=== PATIENT | male | born 1960 | race Two or more races ===

== ENCOUNTER 2024-10-02 23:43 | Emergency (ER) | payer MEDICARE, MEDICAID, SELFPAY ==
[2024-10-02 23:43] VITALS: BMI 28.1
[2024-10-03 00:05] VITALS: BP 156/84; PULSE 90; RESP 18; TEMP 37.1; O2SAT 97
--- NOTE | 2024-10-03 00:20 | PD.EDRME ---
Rapid Medical Screening Exam [facility] Arrival date/time: 10/02/24 23:43 Chief Complaint: Headache Time Seen by Provider: 10/02/24 23:50 Vital signs: Vital Signs Temperature 98.8 F 10/03/24 00:05 Pulse Rate 90 10/03/24 00:05 Respiratory Rate 18 10/03/24 00:05 Blood Pressure 156/84 H 10/03/24 00:05 Pulse Oximetry (%) 97 10/03/24 00:05 Oxygen Delivery Method Room Air 10/03/24 00:05 [facility] Narrative: Headache, dizziness x3 days. Current pain 03/31.
--- NOTE | 2024-10-03 00:22 | EKG_ITS ---
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
--- NOTE | 2024-10-03 00:46 | PD.EDADULT ---
ED General RME/HPI General Chief complaint: Headache Stated complaint: HEADACHE/ DIZZINESS X 3HOURS Time Seen by Provider: 10/02/24 23:50 Source: patient Arrival date/time: 10/02/24 23:43 Mode of arrival: ambulatory Limitations: no limitations RME / HPI RME / HPI narrative: RME: Headache, dizziness x3 days. Current pain 03/31. Dr. Matute?s Main ED Evaluation: 64-year-old male with a history of chronic recurrent headaches who presents to the emergency department with his typical headaches. He has not taken any hbmd-ows-[id number] medicine such as Tylenol or ibuprofen for the pain. He states he feels these headaches are triggered every time he is under a power lines or cellular lines. He has since moved into department complex across the street from a prior plan is had daily headaches. There is associated photophobia, nausea, and phonophobia. He denies fevers or vomiting. He denies neck stiffness. He states the last time he had this was when he was living in an apartment in [place] across from a cellular tower where he would get these recurrent headaches as well. He denies focal weakness or deficits. Related Data Previous Rx's ?Medication ?Instructions ?Recorded Brompheniramine/Phenylephrine/DM 1 tsp PO [id number] PRN COUGH OR 09/06/17 SYRUP * (DIMETAPP COLD AND COUGH *) CONGESTION #118 mL acetaminophen 500 mg tablet 500 mg PO Q6HR PRN PAIN #30 tabs 09/06/17 (Tylenol Extra Strength) loratadine 10 mg tablet (Claritin) 10 mg PO QDAY #40 tabs 09/06/17 Allergies Allergy/AdvReac Type Severity Reaction Status Date / Time NKA* Allergy Uncoded 09/06/17 13:11 Review of Systems Review of Systems Systems Reviewed: All systems reviewed, normal except as documented Past Medical History Social History SMOKING STATUS: Current some day smoker ED Exam Narrative Physical exam: GENERAL APPEARANCE: AxOx4, generally well-appearing, no acute distress. HEENT: NC, AT. MMM. EOMI, clear conjunctiva, oropharynx clear. NECK: Supple without lymphadenopathy. No stiffness or restricted ROM. HEART: Normal rate and regular rhythm, normal S1/S1, no m/r/g LUNGS: CTAB, moving air well. No crackles or wheezes are heard. ABDOMEN: Soft, nontender, nondistended with good bowel sounds heard. BACK: No midline C/T/L spine pain or deformity, No CVAT, no obvious deformity. EXTREMITIES: Without cyanosis, clubbing or edema. MUSCULOSKELETAL: FROM of all major joints, no chest tenderness NEUROLOGICAL: Grossly nonfocal. Alert and oriented, moving all 4 extremities. CN not formally tested but appear grossly intact. Observed to ambulate with normal gait. Skin: Warm and dry without any rash. General Limitations: Present no limitations Course Quality Measures none Orders Category Date Time Status EKG (ED ONLY) *Do not use* NOW Care 10/03/24 00:22 Completed EKG (ED Only) Stat Exams 10/03/24 00:22 Draft Ketorolac Inj [Toradol Inj] Med 10/03/24 00:41 Discontinued 30 mg IM X1 ONE Metoclopramide Inj [Reglan Inj] Med 10/03/24 00:41 Discontinued 10 mg IM X1 ONE Vital Signs Vital signs: Vital Signs Temperature 98.8 F 10/03/24 00:05 Pulse Rate 90 10/03/24 00:05 Respiratory Rate 18 10/03/24 00:05 Blood Pressure 156/84 H 10/03/24 00:05 Pulse Oximetry (%) 97 10/03/24 00:05 Oxygen Delivery Method Room Air 10/03/24 00:05 SpO2 97% on room air, patient is not hypoxic MDM Patient data External records reviewed:: [facility] previous records Clinical information provided by:: patient Social determinants that could affect healthcare access:: none Patient has the following chronic illnesses:: chronic recurrent headaches How is presenting disease/condition affected by chronic disease/condition?: uneffected by Evaluation data The following diagnostics were reviewed and interpreted by me:: lab results, radiology exam(s) and EKG tracing(s) Lab and/or radiology exams considered but not ordered:: None Interpretation Summary: See narrative Medications Medications considered but not ordered:: None Medication administrations:: Medication Administration History Discontinued Medications Ketorolac Tromethamine (Ketorolac Inj 60 Mg/2 Ml Vial) 30 mg IM X1 ONE Stop: 10/03/24 00:42 Last Admin: 10/03/24 00:51 Dose: 30 mg Documented By: CVL Metoclopramide HCl (Metoclopramide Inj 5 Mg/Ml Vial 2 Ml) 10 mg IM X1 ONE; Protocol Stop: 10/03/24 00:42 Last Admin: 10/03/24 00:55 Dose: 10 mg Documented By: CVL As above Consultations Consultation(s) initiated? (list below): No Diagnosis Differential Diagnosis ED Complaint MDM: Migraine, tension headache, atypical migraine Most likely diagnosis given after review of the tests above:: See below Admission Indicated Admission indicated?: not indicated Explain why admission is indicated or not indicated:: Patient has no emergent abnormalities in their studies and can be managed on an outpatient basis. Admission Request Was there a request for admission?: No Disposition Plan Disposition Plan: Discharge Discharge Attestation Discharge Attestation: The patient and all family members were given an opportunity to ask questions and understood the discharge instructions. Discharge instructions specifically effects, indications for sooner follow up or return to the emergency department, and the expected course of current diagnosis. Patient condition: Stable Medical Decision Making MDM Narrative MDM Narrative: Mr. Salas is otherwise well-appearing, with a normal neurologic exam, he presents with chronic current headaches. Further workup in the emergency department is not indicated. He was given symptomatic treatment with IM Reglan and Toradol with improvement. His remained neurologically intact with stable vital signs, he is appropriate for outpatient follow-up. We did discuss options to avoid triggers with their his headaches however could be complicated considering this is around [place] Differential Diagnosis Differential Diagnosis: Migraine, tension headache, atypical migraine Discharge Plan Plan Patient Disposition: HOME (Self Care) Prescriptions/Referrals Prescriptions/Med Rec: No Action acetaminophen [Tylenol Extra Strength] 500 MG tablet 500 mg PO Q6HR PRN (Reason: PAIN) Qty: 30 0RF loratadine [Claritin] 10 MG tablet 10 mg PO QDAY Qty: 40 0RF Brompheniramine/Phenylephrine/DM SYRUP * (DIMETAPP COLD AND COUGH *) 118 ML solution 1 tsp PO [id number] PRN (Reason: COUGH OR CONGESTION) Qty: 118 0RF Referrals: Temporary Provider,ED [Physician] - In 1 week Problem List Clinical Impression: Headache Patient/Caregiver Discharge Instructions Education Materials: Self-Care for Headaches Additional Instructions: With your primary care doctor in 2 to 3 days if symptoms are not improving. You can return to the emergency department sooner if symptoms worsen or if he notes any new, concerning issues Print Language: Monegasque Stand Alone Forms: Susannah Award Info., Patient Portal Info Letter
[2024-10-03] MEDS: KETOROLAC INJ 60 MG/2 ML VIAL 30 MG IM (00:51)
[2024-10-03] MEDS: METOCLOPRAMIDE INJ 5 MG/ML VIAL 2 ML 10 MG IM (00:55)
[2024-10-03 01:01] VITALS: RESP 18
== END 2024-10-03 01:01 | disposition home or self-care (01) ==
LOC: SERX 10-03 01:07
PROVIDERS: Emergency Provider Emergency Medicine; PCP Nurse Practitioner Family; Referring Provider Emergency Medicine
DX: R51.9 Headache, unspecified (principal)
CPT/HCPCS: 80053; 81001; 84484; 85025; 93005; 96372; 99284; J1885; J2765

== ENCOUNTER 2025-03-31 11:06 | Emergency (ER) | payer MEDICARE, MEDICAID, SELFPAY ==
--- NOTE | 2025-03-31 12:07 | EDNOTE_ITS ---
ED Male Genitalurinary RME/HPI General Chief complaint: Urogenital-Male Stated complaint: Cassidy catheter came out Time Seen by Provider: 03/31/25 11:24 Arrival date/time: 03/31/25 11:06 64-year-old male presents to the emergency department today patient has history of urinary retention patient has a Cassidy catheter in place patient reports the catheter fell out today patient is requesting replacement of the Cassidy catheter. Patient ports no fever nausea vomiting no dysuria polyuria patient reports no chest pain shortness of breath or abdominal pain Limitations: no limitations Related Data Previous Rx's ?Medication ?Instructions ?Recorded Brompheniramine/Phenylephrine/DM 1 tsp PO [id number] PRN COUGH OR 09/06/17 SYRUP * (DIMETAPP COLD AND COUGH *) CONGESTION #118 mL acetaminophen 500 mg tablet 500 mg PO Q6HR PRN PAIN #3 0 tabs 09/06/17 (Tylenol Extra Strength) loratadine 10 mg tablet (Claritin) 10 mg PO QDAY #40 t abs 09/06/17 Allergies Allergy/AdvReac Type Severity Reaction Status Date / Time NKA* Allergy Uncoded 03/31/25 11:09 Review of Systems Review of Systems Systems Reviewed: All systems reviewed, normal except as documented Constitutional Constitutional: Reports system reviewed and no additional complaints, except as documented, Denies fever(s) and Denies headache(s) Eyes Eyes: Reports system reviewed and no additional complaints, except as documented and Denies blurry vision ENT Ears, Nose, Mouth, and Throat: Reports system reviewed and no additional complaints, except as documented, Denies headache(s), Denies nasal congestion and Denies nasal discharge Cardiovascular Cardiovascular: Reports system reviewed and no additional complaints, except as documented, Denies chest pain and Denies dyspnea Respiratory Respiratory: Reports system reviewed and no additional complaints, except as documented, Denies chest congestion, Denies cough and Denies dyspnea Gastrointestinal Gastrointestinal: Reports system reviewed and no additional complaints, except as documented and Denies abdominal pain Genitourinary Genitourinary: Reports system reviewed and no additional complaints, except as documented, Denies dysuria, Denies flank pain and Reports other (Urinary retention) Integumentary/Breasts Skin/Breast: Reports system reviewed and no additional complaints, except as do cumented and Denies rash Neurologic Neurologic: Reports system reviewed and no additional complaints, except as documented, Reports as per HPI and Denies headache(s) Past Medical History Social History SMOKING STATUS: Current every day smoker ED Exam General Limitations: Present no limitations General appearance: Present alert and in no apparent distress Head Head exam: Present atraumatic Eye Eye exam: Present normal appearance, PERRL and EOMI ENT ENT exam: Present normal exam, normal oropharynx and mucous membranes moist Neck Neck exam: Present normal inspection, full ROM and trachea midline Chest Chest inspection: Present normal inspection and symmetric chest wall rise Respiratory Respiratory exam: Present normal lung sounds bilaterally Cardiovascular Cardiovascular exam: Present regular rate, normal rhythm and normal heart sounds Abdominal Exam Abdominal exam: Present soft and normal bowel sounds; Absent distention, tenderness, guarding, rebound or rigidity Extremities Exam Extremities exam: Present normal inspection and full ROM Back Exam Back exam: Present normal inspection and full ROM Neurological Exam Neurological exam: Present alert, oriented X3 and CN II-XII intact Psychiatric Psychiatric exam: Present normal affect and normal mood Skin Skin exam: Present warm, dry, intact and normal color Course Quality Measures none Orders Category Date Time Status Cassidy [Urinary Catheter] NOW Care 03/31/25 11:31 Completed Cassidy to Leg Bag NOW Care 03/31/25 11:31 Ordered Vital Signs Vital signs: O2 saturation 98% on room air within normal limits Urogenital - Male MDM Narrative MDM Narrative:: 64-year-old male presents to the emergency department today patient has history of urinary retention patient has a Cassidy catheter in place patient reports the catheter fell out today patient is requesting replacement of the Cassidy catheter. Patient ports no fever nausea vomiting no dysuria polyuria patient reports no chest pain shortness of breath or abdominal pain On exam patient well-appearing patient does not appear ill or toxic in no acute distress Cassidy catheter was replaced patient tolerated procedure well patient had approximately 2 L out patient reports complete relief Patient discharged home in no distress to follow-up with primary care doctor in the next 24 to 48 hours and for any worsening symptoms to return to the ER immediately Patient data External records reviewed:: [facility] previous records Clinical information provided by:: patient Social determinants that could affect healthcare access:: none Patient has the following chronic illnesses:: None How is presenting disease/condition affected by chronic disease/condition?: no chronic disease Evaluation data The following diagnostics were reviewed and interpreted by me:: other (specify) (N/A) Lab and/or radiology exams considered but not ordered:: N/A Interpretation Summary: N/A Medications / Prescriptions Medications or Prescriptions considered but not ordered:: Considered not ordered Medication administrations:: N/A Consultations Consultation(s) initiated? (list below): No Diagnosis Urogenital Male Differential Diagnosis: urinary tract infection and acute retention of urine Most likely diagnosis given after review of the tests above:: Urinary retention Cassidy catheter problem Admission Indicated Admission indicated?: not indicated Admission Request Was there a request for admission?: No Disposition Plan Disposition Plan: Discharge Discharge Attestation Discharge Attestation: The patient and all family members were given an opportunity to ask questions and understood the discharge instructions. Discharge instructions specifically effects, indications for sooner follow up or return to the emergency department, and the expected course of current diagnosis. Patient condition: Stable Discharge Plan Plan Patient Disposition: HOME (Self Care) Discharge Disposition comment: Stable Prescriptions/Referrals Prescriptions/Med Rec: No Action acetaminophen [Tylenol Extra Strength] 500 MG tablet 500 mg PO Q6HR PRN (Reason: PAIN) Qty: 30 0RF loratadine [Claritin] 10 MG tablet 10 mg PO QDAY Qty: 40 0RF Brompheniramine/Phenylephrine/DM SYRUP * (DIMETAPP COLD AND COUGH *) 118 ML solution 1 tsp PO [id number] PRN (Reason: COUGH OR CONGESTION) Qty: 118 0RF Referrals: No Primary/Family,Physician [Primary Care Provider] - 04/01/25 Problem List Clinical Impression: Urinary retention, Cassidy catheter problem Patient/Caregiver Discharge Instructions Education Materials: ED Cassidy Catheter, Care Additional Instructions: Please follow up with your primary care doctor in the next 24-48hrs for any worsening symptoms return here immediately Print Language: Persian Stand Alone Forms: Susannah Award Info., Patient Portal Info Letter PA/TAMRA Supervising Physician LESLYE/TAMRA Supervising Physician: Dr hollis
== END 2025-03-31 12:18 | disposition home or self-care (01) ==
PROVIDERS: Emergency Provider Emergency Medicine
DX: T83.028A Displacement of other urinary catheter, initial encounter (principal); R33.9 Retention of urine, unspecified; Y84.6 Urinary catheterization as the cause of abnormal reaction of the patient, or of later complication, without mention of misadventure at the time of the procedure
CPT/HCPCS: 51702; 99284; A4314

== ENCOUNTER 2025-04-02 20:24 | Emergency (ER) | payer MEDICARE, MEDICAID, SELFPAY ==
[2025-04-02 21:38] VITALS: BP 151/80; PULSE 110; RESP 18; TEMP 39.4; O2SAT 97; BMI 26.1
--- NOTE | 2025-04-02 21:42 | EKG_ITS ---
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
--- NOTE | 2025-04-02 21:43 | XR_ITS ---
Examination: AP chest single view Technique one AP portable semiupright chest single view Date and time: April 02, 2025 2157 hours INDICATIONS: Shortness of breath chest pain today. FINDINGS: Normal heart size. Lungs are clear. The osseous structures are intact IMPRESSION: No active disease.
[2025-04-02 22:01] VITALS: PULSE 118
--- NOTE | 2025-04-02 22:01 | EDNOTE_ITS ---
<Statement entered by Ellen Ashford MD - 04/12/25 04:08> As co-signing physician, I was present and available for consult prn. I concur with the plan and care as documented by the midlevel provider. ED Abdominal Pain RME/HPI General Chief Complaint: Nausea/Vomiting/Diarrhea Stated complaint: NAUSEA Time seen by provider: 04/02/25 21:39 Arrival date/time: 04/02/25 20:24 RME / HPI RME / HPI narrative: 64-year-old male patient came in for evaluation regarding not feeling well.. Patient told me that since this morning has been having not feeling well, associated with with nausea. Denies any cough. Denies any other complaints. Patient had a chronic Cassidy catheter. Patient was noted to have a fever 102.9, and heart rate of 120. Sepsis alert was initiated right away. Patient denies any abdominal pain. Related Data Previous Rx's ?Medication ?Instructions ?Recorded Brompheniramine/Phenylephrine/DM 1 tsp PO [id number] PRN COUGH OR 09/06/17 SYRUP * (DIMETAPP COLD AND COUGH *) CONGESTION #118 mL acetaminophen 500 mg tablet 500 mg PO Q6HR PRN PAIN #3 0 tabs 09/06/17 (Tylenol Extra Strength) loratadine 10 mg tablet (Claritin) 10 mg PO QDAY #40 t abs 09/06/17 Allergies Allergy/AdvReac Type Severity Reaction Status Date / Time No Known Allergies Allergy Verified 04/02/25 20:25 Review of Systems Review of Systems Narrative Review of Systems: Review of system reviewed and within normal limits except mentioned in HPI ED Exam Narrative Physical exam: VITAL SIGNS: Reviewed. GENERAL APPEARANCE: Alert and interactive, follows commands, no acute distress, febrile HEAD AND FACE: Non-traumatic. ENT: PERRL, pink conjunctivitis, eyelid no trauma, Mucous membrane moist. NECK: Supple, nontender, no nuchal rigidity. CHEST: No tenderness, no crepitus, no paradoxical movement, no retractions. LUNGS: Clear, well ventilated, symmetric, no rales, no wheezing, no ronchi, no stridor, good breath sounds bilaterally. HEART: Tachycardic, no murmur, no gallops. ABDOMEN: Soft, positive bowel sounds, nondistended, no guarding, nontender, no rebound, no masses, RECTAL: Deferred. GENITAL: Chronic Cassidy catheter intact, draining cloudy urine NEUROLOGICAL: Gross motor function intact sensory function intact, Appropriate for age. MUSCULOSKELETAL: low back nontender, full range of motion. EXTREMITIES: Nontender, full range of motion. SKIN: Color pink, dry, no rash, no lacerations, no abrasions, no contusions. LYMPHATICS: Deferred. Course Quality Measures none Orders Category Date Time Status Bedside COVID-19 Antigen Test NOW Care 04/02/25 21:44 Completed Teacher'S Aide STAT Care 04/02/25 21:42 Completed Continuous Pulse Oximetry STAT Care 04/02/25 21:42 Completed EKG (ED ONLY) *Do not use* NOW Care 04/02/25 21:42 Completed Cassidy [Urinary Catheter, Remove] ONCE Care 04/03/25 04:28 Completed Cassidy [Urinary Catheter] QS Care 04/03/25 04:28 Completed In and Out Catheter X1PRN Care 04/02/25 21:42 Completed Insert IV NOW Care 04/02/25 21:42 Completed NPO STAT Care 04/02/25 21:42 Completed Strict Intake and Output Routine Care 04/02/25 21:[address] abdomen pelvis wo con Stat Exams 04/03/25 01:36 Completed EKG (ED Only) Stat Exams 04/02/25 21:42 Draft US gall bladder Stat Exams 04/02/25 23:42 Completed XR chest 1V SEPSIS PROTOCOL Stat Exams 04/02/25 21:43 Completed B-Type Natriuretic Peptide Stat Lab 04/02/25 21:45 Completed Blood Culture (Lab) Stat Lab 04/02/25 21:45 Results CBC Stat Lab 04/02/25 21:45 Completed Comprehensive Metabolic Panel Stat Lab 04/02/25 21:45 Completed LDH (Lactate Dehydrogenase) Stat Lab 04/02/25 21:45 Completed Lactate (Lactic Acid) Stat Lab 04/02/25 21:45 Completed Lactic Acid, 3 HR Stat Lab 04/03/25 01:44 Completed Lipase Stat Lab 04/02/25 21:45 Completed Magnesium Stat Lab 04/02/25 21:45 Completed Partial Thromboplastin Time Stat Lab 04/02/25 21:45 Completed Phosphorous Stat Lab 04/02/25 21:45 Completed Procalcitonin Stat Lab 04/02/25 21:45 Completed Prothrombin Time with INR Stat Lab 04/02/25 21:45 Completed Troponin I Stat Lab 04/02/25 21:45 Completed Urinalysis Stat Lab 04/02/25 22:10 Completed Urine Culture Stat Lab 04/02/25 22:10 Completed Acetaminophen Tab [Tylenol ES Tab] Med 04/02/25 21:42 Discontinued 1,000 mg PO X1 ONE Lidocaine Jelly 2% Urojet [Xylocaine Jelly 2% Urojet] Med 04/03/25 04:06 Discontinued See Dose Instructions TOP X1 ONE Ringers Lactated 1000 ml [Lactated Ringers] 1,000 ml Med 04/02/25 21:43 Discontinued IV 999 mls/hr Ringers Lactated 1000 ml [Lactated Ringers] 1,000 ml Med 04/02/25 23:59 Discontinued IV 999 mls/hr cefTRIAXone/D5w 1gm IV premix [Rocephin/D5w 1gm IV Med 04/02/25 21:43 Discontinued premix] 1 gm in 50 ml IV X1 Oxygen Delivery NOW RT 04/02/25 21:42 Completed Vital Signs Vital signs: Vital Signs Temperature 102.9 F H 04/02/25 21:38 Pulse Rate 110 H 04/02/25 21:38 Respiratory Rate 18 04/02/25 21:38 Blood Pressure 151/80 H 04/02/25 21:38 Pulse Oximetry (%) 97 04/02/25 21:38 Oxygen Delivery Method Room Air 04/02/25 21:38 Abdominal Pain MDM MDM Narrative MDM Narrative:: 64-year-old male patient came in for evaluation regarding not feeling well.. Patient told me that since this morning has been having not feeling well, associated with with nausea. Denies any cough. Denies any other complaints. Patient had a chronic Cassidy catheter. Patient was noted to have a fever 102.9, and heart rate of 120. Sepsis alert was initiated right away. Patient denies any abdominal pain. Patient received IV fluids, IV ceftriaxone, Tylenol. Laboratory workup significant for leukocytosis of 19.6 creatinine of 2.6, BUN of 32 lactic acid was noted to be 2.5 urinalysis significant for UTI. Pending CT scan of the abdomen and pelvis results Care transferred to Dr. Ashford at 12 Am for final disposition Patient data External records reviewed:: None Clinical information provided by:: patient Social determinants that could affect healthcare access:: none Patient has the following chronic illnesses:: None How is presenting disease/condition affected by chronic disease/condition?: no chronic disease Evaluation data The following diagnostics were reviewed and interpreted by me:: lab results and radiology exam(s) Lab and/or radiology exams considered but not ordered:: None Interpretation Summary: Pending results Medications / Prescriptions Medications or Prescriptions considered but not ordered:: None Medication administrations:: Medication Administration History Discontinued Medications Acetaminophen (Acetaminophen 500 Mg Tablet) 1,000 mg PO X1 ONE Stop: 04/02/25 21:43 Last Admin: 04/02/25 22:19 Dose: 1,000 mg Documented By: CCT Lactated Ringer's (Lactated Ringers) 1,000 mls @ 999 mls/hr IV .Q1H1M ONE Stop: 04/02/25 22:43 Last Infusion: 04/02/25 23:20 Dose: Infused Documented By: Admin: 04/02/25 22:20 Dose: 999 mls/hr Documented By: CCT Ceftriaxone Sodium/Dextrose (Rocephin/D5w 1gm Iv Premix) 1 gm in 50 mls @ 100 mls/hr IV X1 ONE Stop: 04/02/25 22:12 Last Infusion: 04/02/25 22:49 Dose: Infused Documented By: Admin: 04/02/25 22:19 Dose: 100 mls/hr Documented By: CCT Lactated Ringer's (Lactated Ringers) 1,000 mls @ 999 mls/hr IV .Q1H1M ONE Stop: 04/03/25 00:59 Last Infusion: 04/03/25 01:30 Dose: Infused Documented By: Admin: 04/03/25 00:24 Dose: 999 mls/hr Documented By: CCT Lidocaine HCl (Lidocaine Jelly 2% (Urojet) 10 Ml Tube) 0 ml TOP X1 ONE Stop: 04/03/25 04:07 Last Admin: 04/03/25 04:10 Dose: 10 ml Documented By: CCT Ceftriaxone IV fluids Consultations Consultation(s) initiated? (list below): No Consultation #1 (Physician, Specialty, Details): None Diagnosis Differential diagnosis abdominal pain: abdominal pain and diverticulitis Most likely diagnosis given after review of the tests above:: Abdominal pain Admission Indicated Admission indicated?: not indicated (Pending results) Explain why admission is indicated or not indicated:: Pending results Admission Request Was there a request for admission?: No Disposition Plan Disposition Plan: other (specify) Discharge Plan Plan Patient Disposition: [facility] Facility Pt Being Transferred to: [facility] Service Needed for Transfer: Nephrology Patient condition on transfer: Stable Prescriptions/Referrals Prescriptions/Med Rec: No Action acetaminophen [Tylenol Extra Strength] 500 MG tablet 500 mg PO Q6HR PRN (Reason: PAIN) Qty: 30 0RF loratadine [Claritin] 10 MG tablet 10 mg PO QDAY Qty: 40 0RF Brompheniramine/Phenylephrine/DM SYRUP * (DIMETAPP COLD AND COUGH *) 118 ML solution 1 tsp PO [id number] PRN (Reason: COUGH OR CONGESTION) Qty: 118 0RF Referrals: Hosea Mathews [Primary Care Provider] - In 1 week Problem List Clinical Impression: Abdominal pain Patient/Caregiver Discharge Instructions Print Language: Sudanese Stand Alone Forms: Susannah Award Info., Patient Portal Info Letter
[2025-04-02 22:06] LABS: Lactate (Lactic Acid) 2.5 mMol/L (0.4-2.0)
[2025-04-02 22:12] LABS: Basophils # (Auto) 0.1 Thou/mm3 (0.0-0.2); Basophils % (Auto) 1 % (0-2.5); Eosinophils # (Auto) 0.0 Thou/mm3 (0.0-0.5); Eosinophils % (Auto) 0 % (0-10); Hematocrit 40.5 % (41.0-53.0); Hemoglobin 13.7 g/dL (13.5-16.0); Immature Granulocytes Auto 0.14 Thou/mm3 (0.00-0.00); Lymphocytes # (Auto) 1.2 Thou/mm3 (1.0-4.8); Lymphocytes % (Auto) 6 % (10-50); Mean Corpuscular HGB Conc 33.8 g/dl (31.0-37.0); Mean Corpuscular Hemoglobin 27.1 pg (25.0-35.0); Mean Corpuscular Volume 80 fL (80-100); Monocytes # (Auto) 2.1 Thou/mm3 (0.0-0.8); Monocytes % (Auto) 11 % (0-12); Neutrophils # (Auto) 16.0 Thou/mm3 (1.8-7.7); Neutrophils % (Auto) 82 % (37-80); Nucleated Red Blood Cell # 0.00 Thou/mm3 (0.00-0.00); Nucleated Red Blood Cell % 0 /100 WBC (0); Platelet Count 169 Thou/mm3 (140-440); RDW Standard Deviation 40.2 fL (35.1-43.9); Red Blood Count 5.05 Miln/mm3 (4.50-5.90); White Blood Count 19.6 Thou/mm3 (3.8-10.6)
[2025-04-02 22:17] LABS: Collection Type, Urine Clean Catch; Squamous Epithelial Cell,Urine 0 /hpf (0-5)
[2025-04-02 22:19] VITALS: TEMP 39.4
[2025-04-02] MEDS: ACETAMINOPHEN 500 MG TABLET 1000 MG PO (22:19)
[2025-04-02] MEDS: cefTRIAXone/D5w 1gm IV premix 1 GM/50 ML BAG IV (22:19)
[2025-04-02] MEDS: RINGERS LACTATED 1000 ML 1,000 ML 999 ML IV (22:20)
[2025-04-02 22:24] LABS: INR 1.7 (0.9-1.3); Partial Thromboplastin Time 34.5 Seconds (22.0-36.0); Prothrombin Time 17.9 Seconds (9.0-12.2)
[2025-04-02 22:27] LABS: Bilirubin,Urine Negative (Negative); Blood,Urine 2+ (Negative); Color,Urine Yellow (Lt Yel-Yel); Glucose, Urine 4+ (Negative); Ketones,Urine Negative (Negative); Leukocyte Esterase,Urine Positive (Negative); Nitrite,Urine Negative (Negative); PH,Urine 6.0 (5.0-7.0); Protein,Urine 2+ (Neg - Trace); RBC,Urine 56 /hpf (0-3); Specific Gravity,Urine 1.017 (1.001-1.035); Urobilinogen,Urine Negative mg/dL (0.0-1.0); WBC,Urine 1144 /hpf (0-5)
[2025-04-02 22:29] LABS: Clarity,Urine Turbid (Clear/Hazy)
[2025-04-02 22:55] LABS: Alanine Aminotransferase 42 U/L (10-49); Albumin, Serum 4.4 gm/dL (3.4-4.8); Albumin/Globulin Ratio 1.3 (1.2-2.2); Alkaline Phosphatase 220 U/L (46-116); Anion Gap 14 (7-16); Aspartate Amino Transferase 18 U/L (0-34); BUN/Creatinine Ratio 12 Ratio (12-20); Bilirubin,Total 3.1 mg/dL (0.3-1.2); Blood Urea Nitrogen 32 mg/dL (9-23); Calcium 10.2 mg/dL (8.3-10.6); Calcium (Corrected) 10.2 mg/dL (8.5-10.1); Carbon Dioxide 20.6 mMol/L (20.0-31.0); Chloride 96 mMol/L (98-107); Creatinine (Component) 2.6 mg/dL (0.6-1.3); Estimated Creatinine Clearance 24.6 mL/min (>60); Globulin 3.3 gm/dL (2.3-3.5); Glucose 247 mg/dL (74-106); Lipase 41 U/L (12-53); Magnesium 1.6 mg/dL (1.6-2.6); Osmolality,Calculated 277 (275-295); Phosphorous 3.1 mg/dL (2.4-5.1); Potassium 3.9 mMol/L (3.4-5.1); Procalcitonin 12.87 ng/ml (0.0-0.49); Sodium 131 mMol/L (136-145); Total Protein 7.7 gm/dL (5.7-8.2); Troponin I < 0.020 ng/mL (0.0-0.045); eGFR 27 See Note
[2025-04-02 23:04] LABS: B-Type Natriuretic Peptide 31 pg/mL (0-100)
--- NOTE | 2025-04-02 23:42 | XR_ITS ---
Examination: Abdomen sonogram, Limited Date and time of exam: April 02, 2025 1152 hours INDICATIONS: Elevated total bilirubin on laboratory examination today. Technique: Real-time hart scale transabdominal sonographic images of the upper abdomen obtained. Findings: Multiple gallstones Gallbladder wall 0.4 cm Common bile duct 0.5 cm Pancreas obscured by bowel gas Liver 16.4 cm smooth contour and no focal liver lesions Normal hepatopedal portal venous flow Patent IVC Mild right hydronephrosis IMPRESSION: Cholelithiasis Borderline thickening gallbladder wall Consider HIDA scan or MRCP follow-up as clinically warranted
[2025-04-03] VITALS (7 sets, daily range): BP systolic 98–158; BP diastolic 59–84; PULSE 74–96; RESP 15–25; TEMP 36.3–37.1; O2SAT 94–98
[2025-04-03 00:08] LABS: LDH (Lactate Dehydrogenase) 176 U/L (120-246)
[2025-04-03] MEDS: RINGERS LACTATED 1000 ML 1,000 ML 999 ML IV (00:24)
--- NOTE | 2025-04-03 00:56 | PRELIM_ITS ---
Right upper quadrant abdominal ultrasound. April 02, 2025 at 2352 hours Clinical history: Elevated total bili Technique: Grayscale and color flow images of the right upper quadrant are provided. Hepatic and portal veins were also imaged with color flow images. Comparison: No prior study is available for comparison. Findings: The liver is enlarged and measures 16.4 cm. Normal parenchymal echogenicity is seen. No intrahepatic biliary ductal dilatation. The portal vein demonstrates hepatopetal flow. Multiple calculi are noted within the gallbladder demonstrating extensive posterior acoustic shadowing with resultant wall echo shadow complex. The gallbladder wall is borderline thickened and measures 4 mm. Common bile duct is normal in caliber and measures 5 mm. The pancreas is obscured by bowel gas. The visualized segment of the right kidney demonstrates mild hydronephrosis. Impression: 1. Cholelithiasis with borderline gallbladder wall thickening. In the appropriate clinical setting, the possibility of acute cholecystitis cannot be entirely excluded. Suggest follow-up with HIDA scan, if clinically indicated. 2. No biliary obstruction. 3. Mild right hydronephrosis. Recommend further evaluation with CT, as clinically indicated. Report Electronically Signed By: Bill Perez 04/03/2025 12:55:58 AM [EST]
[2025-04-03 01:02] LABS: Reflex Lactate? Y
--- NOTE | 2025-04-03 01:36 | XR_ITS ---
Examination: CT abdomen and pelvis without contrast. Coronal 3-D reconstructions. Sagittal 2-D reconstructions. Date and time of exam:April 03, 2025 at 0153 hours hematuria today, comparison September 23, 2011 INDICATIONS: Onset CTDI: vol (mGy): 7.21 DLP: (mGycm): 482 Technique: Axial images of the abdomen have been obtained, 3 mm slice thickness Intravenous contrast material has not been administered. Low dose protocols were performed. One or more of the following dose reduction techniques were used; automated exposure control, adjustment of the mA and/or KV according to patient size, use of iterative reconstruction technique. Findings: Diffuse fatty infiltration throughout the liver Absent gallbladder No splenic or pancreatic mass Prominent perinephric stranding Bilateral hydronephrosis with wall thickening involving the pelvicalyceal systems and air density in the right renal collecting system, without ureteral calculi Marked thickening of the urinary bladder wall, urinary bladder is distended with a Cassidy catheter AP prostate dimension 5.3 cm Moderate osteopenia IMPRESSION: Findings are most consistent with bilateral pyelonephritis, vesicoureteral reflux causing hydronephrosis, and prominent cystitis Significant prostatomegaly
[2025-04-03 01:48] LABS: Lactic Acid, 3 HR 2.2 mMol/L (0.4-2.0)
--- NOTE | 2025-04-03 02:28 | EDNOTE_ITS ---
Emergency Room Addendum Addendum Narrative: 0000: Care assumed from HILARIA Burns (emergency mid-level provider). Past medical, surgical, social and family history reviewed. Vitals and home medications reviewed. Results and treatment plan discussed. I will assume the care of the patient at this time and will follow the patient, pending CT and US. RADIOLOGY Abdomen/Pelvis CT: Findings: There is symmetrical moderate bilateral hydroureteronephrosis with perinephric/periureteric fat stranding. A 3 x 3.8 cm exophytic left renal cyst is seen. A Cassidy's catheter is seen in the urinary bladder with wall edema /ir regular wall thickening and mild perivesical fat stranding. The prostate is markedly enlarged with median lobe indenting the bladder base. Small air loculi are seen within the dilated right renal pelvicalyceal system. The gallbladder is surgically absent. The liver, spleen, adrenals and pancreas are unremarkable on this non-contrast study. No evidence of bowel obstruction. A moderate amount of fecal material is present in the colon. The appendix is not visualized. There is no free fluid or free air. The abdominal aorta and its branches demonstrate mild atheromatous changes. There are small fat-containing bilateral inguinal hernias. There is diffuse osteopenia. Mild degenerative changes are seen in the spine. There is dependent atelectasis at the visualized lung bases. There is no pleural effusion. Please note that evaluation of soft tissue/vascular structures and bowel loops is limited due to absence of IV and oral contrast. Impression: 1. Symmetrical bilateral hydroureteronephrosis with perinephric, periureteric fat stranding and perivesical fat stranding as described, suspicious for pyelonephritis/pyeloureteritis and cystitis. 2. Small air loculi are seen within the dilated right renal pelvicalyceal system, suspicious for infectious etiology. 3. Prostatomegaly. 4. Other findings as described above. Suggest clinical correlation and follow up accordingly. Gallbladder US: Findings: The liver is enlarged and measures 16.4 cm. Normal parenchymal echogenicity is seen. No intrahepatic biliary ductal dilatation. The portal vein demonstrates hepatopetal flow. Multiple calculi are noted within the gallbladder demonstrating extensive posterior acoustic shadowing with resultant wall echo shadow complex. The gallbladder wall is borderline thickened and measures 4 mm. Common bile duct is normal in caliber and measures 5 mm. The pancreas is obscured by bowel gas. The visualized segment of the right kidney demonstrates mild hydronephrosis. Impression: 1. Cholelithiasis with borderline gallbladder wall thickening. In the appropriate clinical setting, the possibility of acute cholecystitis cannot be entirely excluded. Suggest follow-up with HIDA scan, if clinically indicated. 2. No biliary obstruction. 3. Mild right hydronephrosis. Recommend further evaluation with CT, as clinically indicated. 0338: Discussed with Dr. Nails for admission. Reviewed the patient?s HPI, PMHx, lab and/or radiology results. Discussed treatment plan. 0344: Discussed with Dr. Nails for consult. Reviewed the patient?s PMHx even further. Treatment plan was discussed. Advised urology consult. 0547: Discussed with Dr. Ernandez at [facility] for consult. Reviewed the patient?s PMHx even further. Treatment plan was discussed. Dr. Ferrera, the urology specialist, accepts patient for transfer. 0600: Pending transfer. Patient signed out to Dr. Panda.
--- NOTE | 2025-04-03 03:19 | PRELIM_ITS ---
CT scan of the abdomen and pelvis without intravenous contrast (axial sections with sagittal and coronal reformats); dated April 03, 2025 at 0153 hours Clinical History: Hematuria, RONDA, concern for stones. Comparison: Ultrasound of the gallbladder dated April 02, 2025 Findings: There is symmetrical moderate bilateral hydroureteronephrosis with perinephric/periureteric fat stranding. A 3 x 3.8 cm exophytic left renal cyst is seen. A Cassidy's catheter is seen in the urinary bladder with wall edema /irregular wall thickening and mild perivesical fat stranding. The prostate is markedly enlarged with median lobe indenting the bladder base. Small air loculi are seen within the dilated right renal pelvicalyceal system. The gallbladder is surgically absent. The liver, spleen, adrenals and pancreas are unremarkable on this non-contrast study. No evidence of bowel obstruction. A moderate amount of fecal material is present in the colon. The appendix is not visualized. There is no free fluid or free air. The abdominal aorta and its branches demonstrate mild atheromatous changes. There are small fat-containing bilateral inguinal hernias. There is diffuse osteopenia. Mild degenerative changes are seen in the spine. There is dependent atelectasis at the visualized lung bases. There is no pleural effusion. Please note that evaluation of soft tissue/vascular structures and bowel loops is limited due to absence of IV and oral contrast. Impression: 1. Symmetrical bilateral hydroureteronephrosis with perinephric, periureteric fat stranding and perivesical fat stranding as described, suspicious for pyelonephritis/pyeloureteritis and cystitis. 2. Small air loculi are seen within the dilated right renal pelvicalyceal system, suspicious for infectious etiology. 3. Prostatomegaly. 4. Other findings as described above. Suggest clinical correlation and follow up accordingly. Discussion Details: Results verbally communicated to : Dr. Ashford at 03:10 AM 04/03/2025 Report Electronically Signed By: Haim Feliz 04/03/2025 3:18:59 AM [EST]
[2025-04-03] MEDS: LIDOCAINE JELLY 2% (Urojet) 10 ML TUBE TOP (04:10)
--- NOTE | 2025-04-03 05:11 | PC.NURSE ---
[facility] transfer center was contacted for possible transfer for urology, due to hydro urinary nephrosis along with pylonephritis. Packet faxed over
--- NOTE | 2025-04-03 06:12 | PC.NURSE ---
Accepted to [facility]. Accepted to a Tele Unit pending Bed assignment. They will contact us after morning assignment are completed.
--- NOTE | 2025-04-03 06:20 | PC.NURSE ---
At this time, pt is awake, alert, oriented x3. Respirations are even and unlabored. No s/s of acute distress noted. Discussed plan of care, verbalized understanding.
--- NOTE | 2025-04-03 07:35 | PC.CC ---
Addendum entered by Dwain Stoll RN 04/03/25 08:24: 0822 called [facility], spoke to Eloise and informed the fish bait picker time is 0900. Addendum entered by Dwain Stoll RN 04/03/25 08:22: 0820 spoke to ED charge nurse and informed the fish bait picker time is 0900. Addendum entered by Dwain Stoll RN 04/03/25 08:17: 0810 sent paperwork to [facility] through [employer]. Called [facility], spoke to Jeanne and setup the transport. loader operator supervisor time is 0900. 0738 spoke to charge nurse and updated on accepting info. Charge nurse informed me that she only wants me to setup the transport. Transfer center fax number given to fax the PCS form. Original Note: 0733 received call from Fabiola at [facility] that pt is accepted at [facility]. Accepted by Dr. Benz at 05:57. Pt will be going to room 236. Call report at [phone].
--- NOTE | 2025-04-03 08:06 | PC.NURSE ---
Report given to Dennise FERNANDEZ at [facility] nurse informed ETA for pt is 1000 all questions and concerns answeered
--- NOTE | 2025-04-03 08:39 | EDNOTE_ITS ---
Emergency Room Addendum Addendum Narrative: 0600: Care assumed from Dr. Ashford, the previous shift emergency physician. Past medical, surgical, social and family history reviewed. Vitals and home medications reviewed. I will assume the care of the patient at this time, pending transfer for urology services. Please refer to the emergency department record for history and examination from initial visit.?The following addendum documentation note is intended to reflect any pending information, findings, or radiology results not included in the patient?s initial chart. Patient had been accepted by Dr. Benz at [facility]. EMS p/u @ 0900. 0908: EMS here to transfer the patient. He has remained stable through ED course.
== END 2025-04-03 09:17 | disposition short-term general hospital (02) ==
LOC: SERX 22:27
PROVIDERS: Nurse Practitioner Family; Emergency Provider Emergency Medicine
DX: K80.20 Calculus of gallbladder without cholecystitis without obstruction (principal); N13.30 Unspecified hydronephrosis; N28.89 Other specified disorders of kidney and ureter; N40.0 Benign prostatic hyperplasia without lower urinary tract symptoms; R06.02 Shortness of breath; R07.9 Chest pain, unspecified; R00.0 Tachycardia, unspecified; Z75.1 Person awaiting admission to adequate facility elsewhere
CPT/HCPCS: 51702; 36415; 71045; 74176; 76705; 80053; 81001; 83605; 83615; 83690; 83735; 83880; 84100; 84145; 84484; 85025; 85610; 85730; 87040; 87077; 87086; 87186; 87811; 93005; 96361; 96365; 99284; A4314; J0696; J7120; A9270